=== PATIENT | female | born 1995 | race Caucasian/White ===

== ENCOUNTER 2018-10-22 14:58 | Emergency (ER) | payer SELFPAY ==
[~2018-10-22] VITALS: Ht 160 cm; Wt 72.6 kg
[2018-10-22 14:58] VITALS: BP 115/74
--- NOTE | 2018-10-22 16:31 | NUR ---
Patient discharged to home in stable condition. Written and verbal after care instructions given. Patient verbalizes understanding of instruction.
== END 2018-10-22 16:30 | disposition home or self-care (01) ==
LOC: ER 15:06
DX: R05 Cough (principal); G89.29 Other chronic pain; M79.604 Pain in right leg; M79.605 Pain in left leg
CPT/HCPCS: 99283; A4606; Z7610

== ENCOUNTER 2018-11-16 16:57 | Emergency (ER) | payer SELFPAY ==
[~2018-11-16] VITALS: Ht 160 cm; Wt 80.7 kg
[2018-11-16 17:15] VITALS: BP 123/78
[2018-11-16] MEDS ORDERED: HYDROCODONE/APAP 5/325MG 1 EACH TABLET ONE (17:47)
[2018-11-16] MEDS ORDERED: HYDROCODONE/APAP 5/325MG 1 EACH TABLET PO ONE (18:00)
== END 2018-11-16 18:20 | disposition home or self-care (01) ==
LOC: ER 17:00
DX: M76.61 Achilles tendinitis, right leg (principal)